=== PATIENT | male | born 1950 | race Caucasian/White ===

== ENCOUNTER → 2023-09-25 | Outpatient (CLI) | payer MEDICARE, SELFPAY ==
--- NOTE | 2023-09-25 10:11 | BUR_PTH ---
PATIENT: MERVAT COBB LOC: [facility] U#:[id number] AGE/SX: 73/M ROOM: RE09/25/[address]: Dr. 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 SJ: 09/29/2023 MICROSCOPIC DESCRIPTION Slides are reviewed. GROSS DESCRIPTION Received in fixative is one container labeled with the patient's name and designated 4.0 x 4.0 cm bursa right olecranon. The specimen consists of multiple irregular fragments of stokes-white soft tissue that in aggregate measure 4.0 x 4.0 x 0.6 cm. Head [employer] sections are submitted in two cassettes. / VENKAT:tomasz 09/26/2023 TC:5 CPT: 33518
== END | disposition home or self-care (01) ==
PROVIDERS: Referring Provider Specialist; Visit Provider Specialist
DX: M70.31 Other bursitis of elbow, right elbow (principal)
CPT/HCPCS: 88304